=== PATIENT | female | born 1990 | race Caucasian/White ===

== ENCOUNTER → 2017-10-12 | Outpatient (CLI) | payer OTHER ==
[~2017-10-12] MED LIST: MULVITMINE PO; NAPR500 PO; OXYACE5T PO
[2017-10-13 03:13] LABS: Source ENDOCERVICAL
== END | disposition home or self-care (01) ==
LOC: LAB 12:04
PROVIDERS: Nurse Practitioner
DX: Z01.419 Encounter for gynecological examination (general) (routine) without abnormal findings (principal)
CPT/HCPCS: G0145

== ENCOUNTER → 2017-11-25 | Outpatient (CLI) | payer OTHER | LOC: LAB EV 14:47 | DX: R35.0 Frequency of micturition (principal) | CPT/HCPCS: 87086 ==